=== PATIENT | male | born 1960 ===

== ENCOUNTER → 2022-09-29 | Outpatient (CLI) | payer OTHER | LOC: LAB SHORT 12:30 → LAB 12:30 | DX: R30.0 Dysuria (principal) | CPT/HCPCS: 87086 ==

== ENCOUNTER → 2022-10-07 | Outpatient (CLI) | payer OTHER | END | disposition home or self-care (01) | LOC: LAB SHORT 17:45 | DX: R30.0 Dysuria (principal) | CPT/HCPCS: 87086 ==